=== PATIENT | male | born 2000 | race Caucasian/White ===

== ENCOUNTER 2019-08-11 17:14 | Emergency (ER) | payer BC ==
--- NOTE | 2019-08-11 17:55 | ER Document Report ---
ED Medical Screen (RME) - General Chief Complaint: Abdominal Pain Stated Complaint: ABDOMINAL PAIN Time Seen by Provider: 08/11/19 17:51 Primary Care Provider: NIALL WARE [Primary Care Provider] - Follow up as needed Mode of Arrival: Ambulatory Information source: Patient Notes: 18-year-old male presented to ED for complaint of left upper abdominal pain with nausea and vomiting. He states she thought his bowel movements were a little too small and his abdomen was distended. She gave him Dulcolax pill. He did have a bowel movement then but then started throwing up. Yesterday he was thrown up and had a fever she gave him Tylenol Sprite and crackers. One watery liquid bowel movement and then normal bowel movements yesterday and today. And now today he is throwing up multiple times today. He is complaining of severe pain to the left upper and lower quadrant. He denies any trouble urinating or blood in his urine. I have greeted and performed a rapid initial assessment of this patient. A comprehensive ED assessment and evaluation of the patient, analysis of test results and completion of medical decision making process will be conducted by an additional ED providers. - Related Data Allergies/Adverse Reactions: Penicillins Allergy (Verified 08/11/19 17:51) Physical Exam - Vital signs Vitals: Temp Pulse Resp BP Pulse Ox 97.6 F 118 H 16 131/64 H 97 08/11/19 17:39 08/11/19 17:39 08/11/19 17:39 08/11/19 17:39 08/11/19 17:39 Course - Vital Signs Vital signs: Temp Pulse Resp BP Pulse Ox 97.6 F 118 H 16 131/64 H 97 08/11/19 17:39 08/11/19 17:39 08/11/19 17:39 08/11/19 17:39 08/11/19 17:39 Doctor's Discharge - Discharge Referrals: NIALL WARE [Primary Care Provider] - Follow up as needed
[2019-08-11] MEDS ORDERED: KETOROLAC TROMETHAMINE INJ/PF 30 MG/1 ML SDV IM ONE (18:01)
[2019-08-11] MEDS ORDERED: ONDANSETRON 4 MG TAB.RAPDIS PO ONE (18:01)
--- NOTE | 2019-08-11 19:04 | RADIOLOGY REPORT (SQ) ---
EXAM DESCRIPTION: CT ABD/PELVIS NO ORAL OR IV COMPLETED DATE/TIME: 08/11/2019 6:43 pm REASON FOR STUDY: left flank pain COMPARISON: None. TECHNIQUE: CT scan of the abdomen and pelvis performed without intravenous or oral contrast. Images reviewed with lung, soft tissue, and bone windows. Reconstructed coronal and sagittal MPR images revi ewed. All images stored on PACS. All CT scanners at this facility use dose modulation, iterative reconstruction, and/or weight based d osing when appropriate to reduce radiation dose to as low as reasonably achievable (ALARA). [facility]: Dose Right [facility]: CareDose [facility]: Dose Right [facility]: Teradose 4D [facility]: Smart PacketFront RADIATION DOSE: CT Rad equipment meets quality standard of care and radiation dose reduction techniq ues were employed. CTDIvol: 5.2 mGy. DLP: 292 mGy-cm.mGy. LIMITATIONS: None. FINDINGS: LOWER CHEST: No significant findings. There is a 4 mm pulmonary nodule in the left lung b ase that is of doubtful clinical significance. NON-CONTRASTED LIVER, SPLEEN, ADRENALS: Evaluation limited by lack of IV contrast. No identified sign ificant masses. PANCREAS: No masses. No peripancreatic inflammatory changes. GALLBLADDER: No identified stones by CT criteria. No inflammatory changes to suggest cholecystitis. RIGHT KIDNEY AND URETER: No suspicious masses. Assessment limited by lack of IV contrast. No signif icant calcifications. No hydronephrosis or hydroureter. LEFT KIDNEY AND URETER: No suspicious masses. Assessment limited by lack of IV contrast. No signifi cant calcifications. No hydronephrosis or hydroureter. AORTA AND RETROPERITONEUM: No aneurysm. No retroperitoneal masses or adenopathy. BOWEL AND PERITONEAL CAVITY: No obvious masses or inflammatory changes. No free fluid. APPENDIX: Normal. PELVIS, BLADDER, AND ABDOMINAL WALL:No abnormal masses. No free fluid. Bladder normal. BONES: No significant findings. OTHER: No other significant finding. IMPRESSION: NO SIGNIFICANT OR ACUTE PROCESS IN THE ABDOMEN OR PELVIS. COMMENT: Quality ID # [id number]: Final reports with documentation of one or more dose reduction techniques (e.g., Automated exposure control, adjustment of the mA and/or kV according to patient size, use of iterative reconstruction technique) TECHNICAL DOCUMENTATION: JOB ID: [id number] 1996 [employer]- All Rights Reserved Reading location - IP/workstation name: [email or web address]
[2019-08-11 19:43] LABS: AMORPHOUS SEDIMENT,URINE TRACE /HPF; APPEARANCE,URINE TURBID; BILIRUBIN,URINE SMALL (NEGATIVE); COLOR,URINE AMBER; GLUCOSE, URINE NEGATIVE (NEGATIVE); KETONES,URINE NEGATIVE (NEGATIVE); PROTEIN,URINE 100 mg/dL (NEGATIVE); URINE SPECIFIC GRAVITY 1.027
[2019-08-11 19:46] LABS: ABSOLUTE BASOPHILS # (AUTO) 0.1 10^3/uL (0.0-0.2); ABSOLUTE EOSINOPHILS # (AUTO) 0.1 10^3/uL (0.0-0.6); ABSOLUTE LYMPHOCYTES (AUTO) 1.2 10^3/uL (0.5-4.7); ABSOLUTE MONOCYTES (AUTO) 0.9 10^3/uL (0.1-1.4); ABSOLUTE NEUT (AUTO) 7.4 10^3/uL (1.7-8.2); BASOPHILS % (AUTO) 0.7 % (0-2); EOSINOPHILS % (AUTO) 0.8 % (0-6); HEMATOCRIT 49.7 % (37.9-51.0); HEMOGLOBIN 17.5 g/dL (13.5-17.0); LYMPHOCYTES % (AUTO) 12.3 % (13-45); MEAN CORPUSCULAR HEMOGLOBIN 31.3 pg (27.0-33.4); MEAN CORPUSCULAR HGB CONC 35.2 g/dL (32.0-36.0); MEAN CORPUSCULAR VOLUME 89 fl (80-97); MONOCYTES % (AUTO) 9.1 % (3-13); PLATELET COUNT 242 10^3/uL (150-450); RED BLOOD COUNT 5.58 10^6/uL (4.35-5.55); RED CELL DISTRIBUTION WIDTH 13.2 % (11.5-14.0); SEGMENTED NEUTROPHILS % (AUTO) 77.1 % (42-78); TOTAL CELLS COUNTED % (AUTO) 100 %; WHITE BLOOD COUNT 9.5 10^3/uL (4.0-10.5)
[2019-08-11 19:50] LABS: ALBUMIN 5.1 g/dL (3.7-5.6); ALKALINE PHOSPHATASE 99 U/L (65-260); ANION GAP 12 (5-19); ASPARTATE AMINO TRANSFERASE 36 U/L (10-45); BILIRUBIN,DIRECT 0.2 mg/dL (0.0-0.4); BILIRUBIN,TOTAL 1.1 mg/dL (0.2-1.3); BLOOD UREA NITROGEN 11 mg/dL (7-20); CALCIUM 9.7 mg/dL (8.4-10.2); CARBON DIOXIDE 31 mmol/L (22-30); CHLORIDE 98 mmol/L (98-107); GLUCOSE 127 mg/dL (75-110); POTASSIUM 3.9 mmol/L (3.6-5.0); TOTAL PROTEIN 8.5 g/dL (6.3-8.2)
--- NOTE | 2019-08-11 22:54 | ER Document Report ---
ED General - General Chief Complaint: Abdominal Pain Stated Complaint: ABDOMINAL PAIN Time Seen by Provider: 08/11/19 17:51 Primary Care Provider: NIALL WARE [NO LOCAL MD] - Follow up as needed Mode of Arrival: Ambulatory Information source: Patient, Parent TRAVEL OUTSIDE OF THE [place] IN LAST 30 DAYS: No - HPI Onset: Other - over the last several days Onset/Duration: Gradual Quality of pain: Sharp Severity: Moderate Pain Level: 3 Associated symptoms: Nausea, Vomiting, Other - abdominal pain Exacerbated by: Denies Relieved by: Denies Similar symptoms previously: No Recently seen / treated by doctor: No Notes: 18 year old male with no significant PMH here for several days of nausea, vomiting, and abdominal pains. The patient says the pain initially was epigastric in nature but it then moves to his LUQ. The patient denies objective fevers, diarrhea, sick contacts, ingestion of uncooked foods, recent travel, recent antibiotic use. The patient was MSE ed before I saw the patient and he was treated with Toradol and Reglan and this helped his symptoms. - Related Data Allergies/Adverse Reactions: Penicillins Allergy (Verified 08/11/19 17:51) Past Medical History - General Information source: Patient - Social History Smoking Status: Never Smoker Frequency of alcohol use: None Drug Abuse: None Lives with: Family Family History: Reviewed & Not Pertinent Patient has suicidal ideation: No Patient has homicidal ideation: No - Past Medical History Cardiac Medical History: Reports: None Pulmonary Medical History: Reports: None EENT Medical History: Reports: None Neurological Medical History: Reports: None Endocrine Medical History: Reports: None Renal/ Medical History: Reports: None Malignancy Medical History: Reports None GI Medical History: Reports: None Musculoskeletal Medical History: Reports None Skin Medical History: Reports None Psychiatric Medical History: Reports: None Review of Systems - Review of Systems Constitutional: No symptoms reported EENT: No symptoms reported Cardiovascular: No symptoms reported Respiratory: No symptoms reported Gastrointestinal: Abdomen distended, Abdominal pain, Nausea, Vomiting Genitourinary: No symptoms reported Male Genitourinary: No symptoms reported Musculoskeletal: No symptoms reported Skin: No symptoms reported Hematologic/Lymphatic: No symptoms reported Neurological/Psychological: No symptoms reported -: Yes All other systems reviewed and negative Physical Exam - Vital signs Vitals: Temp Pulse Resp BP Pulse Ox 97.6 F 118 H 16 131/64 H 97 08/11/19 17:39 08/11/19 17:39 08/11/19 17:39 08/11/19 17:39 08/11/19 17:39 - Notes Notes: GENERAL: Well-appearing, well-nourished and in no acute distress. HEAD: Atraumatic, normocephalic. EYES: Pupils equal round and reactive to light, extraocular movements intact, sclera anicteric, conjunctiva are normal. ENT: TMs normal, nares patent, oropharynx clear without exudates. Moist mucous membranes. NECK: Normal range of motion, supple without lymphadenopathy or JVD. LUNGS: Breath sounds clear to auscultation bilaterally and equal. No wheezes rales or rhonchi. HEART: Regular rate and rhythm without murmurs, rubs or gallops. ABDOMEN: Soft, mild tenderness in LLQ, normoactive bowel sounds. No guarding, no rebound. No masses appreciated. EXTREMITIES: Normal range of motion, no pitting or edema. No clubbing or cyanosis. NEUROLOGICAL: Cranial nerves II through XII grossly intact. Normal speech, normal gait. PSYCH: Normal mood, normal affect. SKIN: Warm, Dry, normal turgor, no rashes or lesions noted. Course - Re-evaluation Re-evalutation: 08/11/19 22:58 The patient is here for abdominal pain with nausea and vomiting. His lab work is unremarkable but consistent with mild volume loss from vomiting. CT of abdomen shows no acute process. Patient felt better after treatment with Toradol and Reglan. Patient and mother felt comfortable going home and follow up with their PCP. - Vital Signs Vital signs: Temp Pulse Resp BP Pulse Ox 97.6 F 118 H 16 131/64 H 97 08/11/19 17:39 08/11/19 17:39 08/11/19 17:39 08/11/19 17:39 08/11/19 17:39 - Laboratory Result Diagrams: 08/11/19 19:00 08/11/19 19:00 Laboratory results interpreted by me: 08/11/19 08/11/19 08/11/19 19:00 19:00 19:00 RBC 5.58 H Hgb 17.5 H Lymph % (Auto) 12.3 L Carbon Dioxide 31 H Glucose 127 H Total Protein 8.5 H Urine Protein 100 H Urine Bilirubin SMALL H Urine Urobilinogen 4.0 H Discharge - Discharge Clinical Impression: Gastroenteritis Condition: Stable Disposition: HOME, SELF-CARE Instructions: Abdominal Pain ([facility]), Gastroenteritis (adult) ([facility]) Additional Instructions: Use Naproxen for abdominal pains and use Zofran for nausea. Eat a bland diet until symptoms subside. Follow up with your primary care doctor the doctor listed in your paperwork if symptoms persist. You had blood work, a urine analysis, and a CT scan in the ER today. Prescriptions: Naproxen 500 mg PO BID PRN #14 tablet PRN Reason: Ondansetron [Zofran Odt 4 mg Tablet] 1 tab PO Q8H PRN #10 tab.rapdis PRN Reason: For Nausea/Vomiting Referrals: LOCALMD,NO [NO LOCAL MD] - Follow up as needed
[2019-08-11 23:47] VITALS: BP 120/74
== END 2019-08-12 | disposition home or self-care (01) ==
LOC: ER 17:14
DX: K52.9 Noninfective gastroenteritis and colitis, unspecified (principal); R11.2 Nausea with vomiting, unspecified; R10.12 Left upper quadrant pain; R10.814 Left lower quadrant abdominal tenderness; R14.0 Abdominal distension (gaseous); Z88.0 Allergy status to penicillin
CPT/HCPCS: 99284; 96372; 36415; 85025; 80053; 81001; 74176; S0119; J1885